=== PATIENT | male | born 1930 | race Caucasian/White ===

== ENCOUNTER 2017-10-16 07:58 | Inpatient (IN) ==
[2017-10-16] MEDS ORDERED: Thrombin Topical 20,000 UNIT Spray Kit TOPICAL ONE (08:19)
[2017-10-16] MEDS ORDERED: Bupivacaine PF 0.5% Inj 30 ML Vial ONE (08:19)
[2017-10-16] MEDS ORDERED: Heparin/NS PF Inj 500 ML ONE (08:19)
[2017-10-16] MEDS ORDERED: Heparin 10,000 UNITS/10 ML Vial (for IV use) ONE (08:19)
[2017-10-16] MEDS ORDERED: Protamine Sulfate Inj 50 MG/5 ML Vial ONE (08:19)
[2017-10-16] MEDS ORDERED: ceFAZolin 2 GM Premix Inj 2 GM/50 ML PIGGYBACK IV.SIG ONE (08:20)
[2017-10-16] MEDS ORDERED: Chlorhexidine Gluconate 2% 1 Pack (2 Cloths) TOPICAL SCH (09:30)
[2017-10-16] MEDS ORDERED: Metoprolol Tartrate 25 MG Tablet PO SCH (09:30)
[2017-10-16] MEDS ORDERED: Sodium Chlor 0.9% Inj 500 ML IV.SIG SCH (10:00)
--- NOTE | 2017-10-16 10:05 | P.HPVS ---
History of Present Illness Chief Complaint: R LE tissue loss, PAD History of Present Illness: 87 yo male with R 1st metatarsal tissue loss, nonhealing. Nonpalpable pulse and CTA shows inflow and outflow disease. - Inpatient Certification If this patient has been admitted as an Inpatient: I certify that the inpatient services were ordered in accordance with Medicare regulations governing the order. This includes certification that hospital inpatient services are reasonable and necessary and in the case of services not specified as inpatient-only under 42 CFR 419.22(n), that they are appropriately provided as inpatient services in accordance to with the 2-midnight benchmark under 43 CFR 412.3(e) Estimated Total Length of Stay (Days): 5 Plans for Post Hospital Care: SNF Review of Systems Constitutional: Reports fatigue, Denies chills Cardiovascular: Denies chest pain Respiratory: Reports cough Musculoskeletal: Reports abnormal walking PMFSH - History History Provided By: Patient, Family Member - Medical History Medical History: Medical History (Last Reviewed 10/16/17 @ 10:02 by Palmer Morales MD) Arthritis COPD (chronic obstructive pulmonary disease) Hx MRSA infection Open wound PVD (peripheral vascular disease) - Surgical History Surgical History: Surgical History (Last Reviewed 10/16/17 @ 10:02 by Palmer Morales MD) History of AAA (abdominal aortic aneurysm) repair Hx of aorto-femoral bypass - Tobacco History Second Hand Smoke Exposure: No Tobacco Use In Past 30 Days: Yes Smoking Status: Heavy tobacco smoker Tobacco Type: Cigarettes - Alcohol History How Often Do You Have a Drink Containing Alcohol: Never - Substance Use History Substance History: No History of Abuse - Travel History Recent Travel in the [place] Within the Last 8 Weeks: No Recent Travel Out of the Country Within the Last 8 Weeks: No Medications and Allergies Active Medications: Active Medications Chlorhexidine Gluconate (Chlorhexidine 2% Cloth) 3 pack TOPICAL ORGAN PIPE FINISHER ZEESHAN Stop: 10/19/17 09:28 Lactated Ringer's (Lr 1000 Ml Inj) 1,000 mls @ 30 mls/hr IV.SIG .Q24H ZEESHAN Stop: 10/19/17 09:28 Sodium Chloride (Ns Inj) 500 mls @ 30 mls/hr IV.SIG .Q10H ZEESHAN Stop: 10/19/17 09:28 Metoprolol Tartrate (Lopressor) 25 mg PO ORGAN PIPE FINISHER ZEESHAN Stop: 08/03/18 09:28 Povidone Iodine (Betadine 5% Antisepsis Kit) 1 applicatio EACH NARE ORGAN PIPE FINISHER ZEESHAN Stop: 10/19/17 09:28 Allergies Allergy/AdvReac Type Severity Reaction Status Date / Time bupropion [From Wellbutrin] AdvReac Dizziness Verified 10/16/17 08:54 Home Medications Medication Instructions Recorded Confirmed Type amlodipine 1 tab PO DAILY 10/09/17 10/16/17 History aspirin [Aspir-Low] 81 mg PO DAILY 10/09/17 10/16/17 History budesonide-formoterol [Symbicort] 2 puff INHALATION BID 10/09/17 10/16/17 History calcium carbonate-vit D3-min 2 tab PO DAILY 10/09/17 10/16/17 History [Calcium 600 + Minerals] cholecalciferol (vitamin D3) 1,000 unit PO DAILY 10/09/17 10/16/17 History docusate sodium [Colace] 200 mg PO DAILY 10/09/17 10/16/17 History omega 4-stq-wok-fish oil [Fish Oil] 1,200 mg PO DAILY 10/09/17 10/16/17 History simvastatin 10 mg PO QPM 10/09/17 10/16/17 History tramadol 50 mg PO Q6H PRN 10/09/17 10/16/17 History vitamin B complex 1 cap PO DAILY 10/09/17 10/16/17 History Physical Exam Vital Signs / I&O: Vital Signs 10/16/17 08:30 10/16/17 09:55 Temperature 97.6 F Pulse Rate 48 L 44 L Respiratory Rate 16 18 Blood Pressure 142/71 H Intake & Output 10/15/17 10/16/17 10/16/17 18:59 06:59 18:59 Weight 64.7 kg Other: Weight On Admission 64.7 kg Neuro: slightly confused, alert, FINNEGAN HEENT: NC/AT; anicteric Neck: no JVD Heart: irreg rate (occ irreg beat), no M Lungs: clear B on breathing treatment Vascular: palpable R femoral pulse but no popliteal and no pedal pulse Laboratory Results - last 24 hr 10/16/17 08:45 Blood Type O Positive Blood Type Recheck Required Antibody Screen Negative CTA (RUBIO) reviewed Shirleyi VTE Risk Assessment Caprini VTE Risk Assessment: No/Low Risk (score <= 1) (intraoperative heparin) Robin Risk Assessment Model: Point Value = 1 Point Value = 2 Point Value = 3 Point Value = 5 Age 41-60 Minor surgery BMI > 25 kg/m2 Swollen legs Varicose veins or History of unexplained or recurrent spontaneous Oral contraceptives or hormone replacement Sepsis (< 1 month) Serious lung disease, including pneumonia (< 1 month) Abnormal pulmonary function Acute myocardial infarction Congestive heart failure (< 1 month) History of inflammatory bowel disease Medical patient at bed rest Age 61-74 Arthroscopic surgery Major open surgery (> 45 min) Laparoscopic surgery (> 45 min) Malignancy Confined to bed (> 72 hours) Immobilizing plaster cast Central venous access Age >= 75 History of VTE Family history of VTE Factor V Leiden Prothrombin [id number] Lupus anticoagulant Anticardiolipin antibodies Elevated serum homocysteine Heparin-induced thrombocytopenia Other congenital or acquired thrombophilia Stroke (< 1 month) Elective arthroplasty Hip, pelvis, or leg fracture Acute spinal cord injury (< 1 month) Prophylaxis Regimen: Total Risk Factor Score Risk Level Prophylaxis Regimen 0-1 Low Early ambulation 2 Moderate Order ONE of the following: *Sequential Compression Device (SCD) *Heparin 5000 units SQ BID 3-4 Higher Order ONE of the following medications: *Heparin 5000 units SQ TID *Enoxaparin/Lovenox 40 mg SQ daily (WT < 150 kg, CrCl > 30 mL/min) *Enoxaparin/Lovenox 30 mg SQ daily (WT < 150 kg, CrCl > 10-29 mL/min) *Enoxaparin/Lovenox 30 mg SQ BID (WT < 150 kg, CrCl > 30 mL/min) AND/OR *Sequential Compression Device (SCD) 5 or more Highest Order ONE of the following medications: *Heparin 5000 units SQ TID (Preferred with Epidurals) *Enoxaparin/Lovenox 40 mg SQ daily (WT < 150 kg, CrCl > 30 mL/min) *Enoxaparin/Lovenox 30 mg SQ daily (WT < 150 kg, CrCl > 10-29 mL/min) *Enoxaparin/Lovenox 30 mg SQ BID (WT < 150 kg, CrCl > 30 mL/min) AND *Sequential Compression Device (SCD) Assessment and Plan - Assessment (1) PAD (peripheral artery disease) Code(s): I73.9 - Peripheral vascular disease, unspecified Status: Acute - Plan R groin reconstruction and distal bypass discussed with patient and procedure and anticipated course. Agree to proceed To OR [phone]
[2017-10-16] MEDS ORDERED: Phenylephrine/NS 1000 MCG/10ML Syringe IV.PUSH ONE (12:00)
[2017-10-16] MEDS ORDERED: Glycopyrrolate Inj 1 MG/5 ML Syringe IV.PUSH ONE (12:00)
[2017-10-16] MEDS ORDERED: Sodium Chlor 0.9% Inj 500 ML IV.SIG ONE (12:00)
[2017-10-16] MEDS ORDERED: Neostigmine Inj 5 MG/5 ML Syringe IV.PUSH ONE (12:00)
[2017-10-16] MEDS ORDERED: Lidocaine PF 1% Inj 5 ML Syringe INFILTRATN ONE (12:00)
[2017-10-16] MEDS ORDERED: Bisacodyl 10 MG Supp RECTAL PRN (13:39)
--- NOTE | 2017-10-16 13:39 | P.OP ---
Date of procedure: 10/16/17 Procedure: 1. R ilioprofunda bypass with 8mm Dacron 2. R fem-BK pop bypass with cryo Implants: 1. 8mm Dacron 2. Cryo vein Anesthesia: GETA Surgeon: Palmer Morales MD Media Relations Intern: Janina Cedeño Estimated blood loss (mL): 150 IV fluids (mL): 2,300 Urine output (mL): 300 Operation and Findings: 1. 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 ilioprofunda to profunda trifurcation 3. strong pedal signals at end of case
[2017-10-16] MEDS ORDERED: fentaNYL Citrate Inj 100 MCG/2 ML Ampul ONE (14:12)
--- NOTE | 2017-10-16 14:44 | MP ---
cc: Palmer Morales MD DATE OF OPERATION: 10/16/2017 PREOPERATIVE DIAGNOSIS: Right lower extremity tissue loss, peripheral vascular disease. POSTOPERATIVE DIAGNOSIS: Right lower extremity tissue loss, peripheral vascular disease. PROCEDURE PERFORMED: 1. Right iliofemoral bypass with 8 mm Dacron. 2. Right femoral to below knee popliteal bypass with cryopreserved vein. ATTENDING SURGEON: Palmer Morales MD TUNE UP MECHANIC SURGEON: Janina Vale. ANESTHESIA: General. INDICATIONS: Mr. Merritt is an 87-year-old gentleman with right lower extremity tissue loss, nonpalpable pedal pulses. He has a previous femoral repair and a femoral-femoral bypass that was subsequently excised for infection. He has on CT scan both inflow and outflow disease and is taken to the operating room for definitive treatment. DESCRIPTION OF PROCEDURE: Informed consent was obtained from the patient. He was taken to the operating room and placed supine on the operating table. An appropriate timeout was taken to ensure the patient's identity, operative site and planned procedure. The administration of 2 grams of Ancef was initiated prior to skin incision and will be discontinued after a single preoperative dose. Everyone in the room agreed with the timeout and we proceeded. He was prepped from his nipples to his toes. A vertical incision was made in the patient's right groin and carried down through subcutaneous tissue with electrocautery. Dense scar tissue was encountered. The external iliac artery was identified and encircled with a vessel loop. The vessel was then similarly encircled with a 2-0 silk and used as a Sanchez tie. We dissected down the common femoral artery, which was slightly aneurysmal and the SFA which was noted to be occluded. We dissected down the profunda, down to its trifurcation and all 3 trifurcating branches were all separately dissected free and encircled with vessel loops. A separate incision was made in the patient's proximal calf, carried down through subcutaneous tissue with electrocautery. The below-knee popliteal artery was identified and dissected free for several centimeters and then a tunnel was created between these 2 incisions. The patient was systemically heparinized. Throughout the remainder of the case, the ACT was kept greater than 250. Proximal control of the external iliac artery was obtained with a profunda clamp and the 3 profunda branches were controlled with profunda clamps. The entire common femoral artery was excised and the proximal SFA was excised. It was noted to be occluded and the distal aspect was oversewn with 4-0 Prolene suture. The external iliac artery was endarterectomized and the 8 mm Dacron was brought up on the field, spatulated and sewn end-to-end to the external iliac artery with running 5-0 Prolene suture. At the completion, it was flushed and noted to be hemostatic with a single repair suture. The graft was cut to appropriate length, spatulated and sewn end-to-end to the confluence of all 3 profunda branches using running 6-0 Prolene suture. At the completion, it was flushed and noted to be hemostatic with repair suture of 6-0 Prolene. There was a Doppler signal in all 3 profunda branches. Proximal and distal control of the graft was obtained with profunda clamps and a longitudinal graftotomy was made with an 11 blade, extended with [place] scissors. The cryopreserved vein was brought up on the field; it had been prepared in the standard fashion. It was spatulated and sewn end-to-side to the graft with running 5-0 Prolene suture. At the completion, it was flushed and noted to be hemostatic. The distal aspect of the vein was clamped. The vein was distended, noted to be hemostatic and marked for orientation. It was passed through the tunnel, taking caution not to twist it. Proximal and distal control of below-knee popliteal artery was obtained with profunda clamps and a longitudinal arteriotomy was made with an 11 blade, extended with Jose F scissors. The graft was cut to the appropriate length, spatulated and sewn end-to-side to the below-knee popliteal artery with running 6-0 Prolene suture. At the completion, it was flushed and noted to be hemostatic. There was a great signal in the foot and all the anastomoses were hemostatic. The heparin was reversed with protamine. The wounds were irrigated and made hemostatic. Amniofil was applied to the groin wound, given that this was the fourth time re-do groin incision and both wounds were closed with 2-0 Polysorb, 3-0 Polysorb and 4-0 Monocryl. The sponge and needle counts were correct at the end of the case. I was present and scrubbed for the entire procedure. MD SHARRON Neville , 02:20 PM , 02:30 PM
[2017-10-16] MEDS: Senna/Docusate Sodium 8.6/50 MG Tablet PO SCH (21:27)
[2017-10-16] MEDS: Famotidine 20 MG Tablet PO SCH (21:27)
[2017-10-16] MEDS: Budesonide-Formoterol 80/4.5 MCG 6.9 GM Inhaler INH SCH (22:22)
[2017-10-17 04:54] LABS: Hematocrit 37.5 % (39.0-51.0); Hemoglobin 12.2 gm/dL (13.0-17.0); Mean Corpuscular HGB Conc 32.5 % (32.0-36.0); Mean Corpuscular Hemoglobin 30.3 pg (27.0-34.0); Mean Corpuscular Volume 93.1 fL (80.0-100.0); Mean Platelet Volume 7.4 fL (7.0-11.0); Platelet Count 191 th/mm3 (150-450); Red Blood Count 4.02 mil/mm3 (4.50-5.90); Red Cell Distribution Width 15.2 % (11.6-17.2); White Blood Count 12.7 th/mm3 (4.0-11.0)
[2017-10-17 05:12] LABS: Calcium 8.6 mg/dL (8.5-10.1); Carbon Dioxide 31.2 meq/L (21.0-32.0); Potassium 5.2 meq/L (3.5-5.1)
--- NOTE | 2017-10-17 07:14 | P.PNVS ---
Subjective Post Op Day #: 1 Procedure: R groin reconstruction, fem-BK pop Subjective/Hospital Course: pt appears to be doing well this morning. pain controlled minimal confusion Objective Vital Signs / I&O: Vital Signs 10/16/17 08:30 10/16/17 09:55 10/16/17 13:58 Temperature 97.6 F 96.5 F L Pulse Rate 48 L 44 L 50 L Respiratory Rate 16 18 17 Blood Pressure 142/71 H 109/51 L Pulse Oximetry 100 10/16/17 14:15 10/16/17 14:30 10/16/17 14:45 Temperature Pulse Rate 44 L 45 L 48 L Respiratory Rate 21 20 20 Blood Pressure 172/62 H 176/70 H 169/72 H Pulse Oximetry 100 100 100 10/16/17 15:00 10/16/17 15:15 10/16/17 15:30 Temperature 97.5 F L Pulse Rate 47 L 47 L 49 L Respiratory Rate 17 18 17 Blood Pressure 170/51 H 166/48 H 170/74 H Pulse Oximetry 100 96 94 L 10/16/17 15:46 10/16/17 16:09 10/16/17 16:10 Temperature 97.3 F L 97.3 F L Pulse Rate 47 L 49 L 49 L Respiratory Rate 16 16 Blood Pressure 104/63 104/63 Pulse Oximetry 94 L 94 L 10/16/17 17:08 10/16/17 18:00 10/16/17 19:00 Temperature 98.2 F Pulse Rate 47 L 58 L 55 L Respiratory Rate 20 Blood Pressure 135/60 Pulse Oximetry 91 L 10/16/17 23:00 10/17/17 00:00 10/17/17 01:05 Temperature 98.1 F Pulse Rate 70 74 73 Respiratory Rate 18 16 Blood Pressure 110/53 L Pulse Oximetry 93 L 10/17/17 02:00 10/17/17 03:00 10/17/17 04:00 Temperature 99.3 F Pulse Rate 56 L 63 60 Respiratory Rate 16 16 Blood Pressure 114/59 L Pulse Oximetry 93 L 10/17/17 05:13 10/17/17 06:00 Temperature Pulse Rate 74 64 Respiratory Rate Blood Pressure Pulse Oximetry Intake & Output 10/16/17 10/17/17 10/17/17 18:59 06:59 18:59 Intake Total 2830 / 2830 480 / 480 Output Total 750 / 750 350 / 350 Balance 2079 / 0 130 / 130 Weight 64.7 kg 66 kg Intake: IV 1050 / 1050 Heparin/NS PF Inj 500 ML @ 0 0 / 0 mls/hr .ROUTE .STK-MED ONE Rx#: [id number] LR 1000 mL Inj 1,000 ML @ 30 1000 / 1000 mls/hr IV.SIG .Q24H ZEESHAN Rx#: [id number] Ancef 2 GM Premix Inj 2 gm In 50 / 50 50 ml @ 0 mls/hr IV.SIG .STK- MED ONE Rx#:[id number] Oral 480 / 480 480 / 480 Anesthesia Amount 1300 / 1300 Output: Urine 350 / 350 Estimated Blood Loss 150 / 150 Urine Amount (Catheter) 600 / 600 Indwelling Temp Sensing 600 / 600 Catheter Other: Mode Setting Right Groin Continuous Continuous Date of Last Bowel Movement 10/15/17 10/15/17 # Bowel Movements 0 Weight On Admission 64.7 kg Exam: Resting comfortably R groin Prevena in place R BK pop incision c/d/i palpable PT and DP Laboratory Results - last 24 hr 10/16/17 10/17/17 10/17/17 08:45 04:37 04:37 WBC 12.7 H RBC 4.02 L Hgb 12.2 L Hct 37.5 L MCV 93.1 MCH 30.3 MCHC 32.5 RDW 15.2 Plt Count 191 MPV 7.4 Sodium 141 Potassium 5.2 H Chloride 105 Carbon Dioxide 31.2 Anion Gap 5 BUN 22 H Creatinine 1.03 Estimated GFR 68 L Random Glucose 97 Calcium 8.6 Blood Type O Positive Blood Type Recheck Required Antibody Screen Negative Assessment and Plan - Assessment (1) PAD (peripheral artery disease) Code(s): I73.9 - Peripheral vascular disease, unspecified Status: Acute - Plan POD#1 R groin reconstruction and distal bypass; Bypass patent, palpable pulse, pain controlled 1. D/C Tinajero 2. Normalize 3. OOB / PT Discharge Plannin-3 days to rehab; OT/PT/case management all consulted [phone]
[2017-10-17] MEDS ORDERED: Non-Formulary Drug (Omega 3-Dha-Epa-Fish Oil [Fish Oil] 1,200 MG) PO SCH (09:00)
[2017-10-17] MEDS: amLODIPine 5 MG Tablet PO SCH (09:10)
[2017-10-17] MEDS: Calcium/Vitamin D 250/125 MG Tablet PO SCH (09:10)
[2017-10-17] MEDS: Senna/Docusate Sodium 8.6/50 MG Tablet PO SCH ×2 (09:10→20:37)
[2017-10-17] MEDS: Budesonide-Formoterol 80/4.5 MCG 6.9 GM Inhaler INH SCH ×2 (09:11→20:37)
[2017-10-17] MEDS: Famotidine 20 MG Tablet PO SCH ×2 (09:11→20:37)
[2017-10-17] MEDS: Enoxaparin Inj 40 MG/0.4 ML Syringe SQ SCH (15:53)
--- NOTE | 2017-10-18 07:34 | P.PNVS ---
Subjective Post Op Day #: 2 Procedure: R groin reconstruction, fem-BK pop Subjective/Hospital Course: mild confusion, anxious to get OOB and moving Req I/O cath x 2 yesterday worked with PT Objective Vital Signs / I&O: Vital Signs 10/17/17 08:00 10/17/17 09:00 10/17/17 10:00 Temperature Pulse Rate 60 54 L 52 L Respiratory Rate Blood Pressure Pulse Oximetry 10/17/17 11:00 10/17/17 12:00 10/17/17 14:00 Temperature 98.1 F Pulse Rate 54 L 52 L 55 L Respiratory Rate 15 Blood Pressure 113/56 L Pulse Oximetry 98 10/17/17 15:00 10/17/17 16:00 10/17/17 17:00 Temperature 98 F Pulse Rate 59 L 64 68 Respiratory Rate 15 Blood Pressure 117/59 L Pulse Oximetry 95 10/17/17 18:00 10/17/17 20:00 10/17/17 21:00 Temperature 98.5 F Pulse Rate 62 60 62 Respiratory Rate 20 Blood Pressure 112/56 L Pulse Oximetry 94 L 10/17/17 22:00 10/17/17 23:00 10/18/17 00:00 Temperature 99.6 F Pulse Rate 58 L 58 L 53 L Respiratory Rate 20 Blood Pressure 98/56 L Pulse Oximetry 94 L 10/18/17 01:00 10/18/17 02:00 10/18/17 03:00 Temperature Pulse Rate 54 L 54 L 58 L Respiratory Rate Blood Pressure Pulse Oximetry 10/18/17 04:00 10/18/17 05:00 10/18/17 06:00 Temperature 98.3 F Pulse Rate 58 L 56 L 58 L Respiratory Rate 20 Blood Pressure 128/58 L Pulse Oximetry 96 Intake & Output 10/17/17 10/18/17 10/18/17 18:59 06:59 18:59 Output Total 150 / 150 420 / 420 Balance -150 / -150 -420 / -420 Weight 65 kg Output: Urine 150 / 150 Urine Amount (Catheter) 420 / 420 Straight 420 / 420 Other: Mode Setting Right Groin Continuous Continuous Date of Last Bowel Movement 10/15/17 10/15/17 Exam: resting comfortably, no distress R groin soft with Prevena in place palpable PT and DP calf incision ok Assessment and Plan - Assessment (1) PAD (peripheral artery disease) Code(s): I73.9 - Peripheral vascular disease, unspecified Status: Acute - Plan POD#2 R groin reconstruction and distal bypass; Bypass patent, palpable pulse, pain controlled 1. Follow-up UOP; july req Tinajero reinserted 2. continue PT 3. Limit narcotics given mild dementia Discharge Planning: Sun/Sat to rehab PT/OT/Case management consulted [phone]
[2017-10-18] MEDS: Calcium/Vitamin D 250/125 MG Tablet PO SCH (09:37)
[2017-10-18] MEDS: Famotidine 20 MG Tablet PO SCH ×2 (09:38→20:59)
[2017-10-18] MEDS: amLODIPine 5 MG Tablet PO SCH (09:38)
[2017-10-18] MEDS: Senna/Docusate Sodium 8.6/50 MG Tablet PO SCH ×2 (09:38→20:59)
[2017-10-18] MEDS: Budesonide-Formoterol 80/4.5 MCG 6.9 GM Inhaler INH SCH ×2 (09:43→21:00)
[2017-10-18] MEDS: Enoxaparin Inj 40 MG/0.4 ML Syringe SQ SCH (13:36)
--- NOTE | 2017-10-19 07:20 | P.PNVS ---
Subjective Post Op Day #: 3 Procedure: R groin reconstruction, fem-BK pop Subjective/Hospital Course: looks great no pain working with PT appetite ok Objective Vital Signs / I&O: Vital Signs 10/18/17 08:00 10/18/17 09:00 10/18/17 10:00 Temperature Pulse Rate 61 60 60 Respiratory Rate Blood Pressure Pulse Oximetry 10/18/17 11:00 10/18/17 12:00 10/18/17 13:00 Temperature 98.1 F Pulse Rate 58 L 61 62 Respiratory Rate 16 Blood Pressure 109/64 Pulse Oximetry 10/18/17 14:00 10/18/17 15:00 10/18/17 16:00 Temperature 98.9 F Pulse Rate 62 64 64 Respiratory Rate 16 Blood Pressure 108/56 L Pulse Oximetry 10/18/17 17:51 10/18/17 20:00 10/18/17 21:00 Temperature 98.6 F Pulse Rate 82 66 60 Respiratory Rate 18 Blood Pressure 101/54 L Pulse Oximetry 94 L 10/18/17 22:00 10/18/17 23:00 10/19/17 00:00 Temperature 98.2 F Pulse Rate 60 66 60 Respiratory Rate 18 Blood Pressure 97/52 L Pulse Oximetry 95 10/19/17 01:00 10/19/17 02:00 10/19/17 03:00 Temperature Pulse Rate 62 62 56 L Respiratory Rate Blood Pressure Pulse Oximetry 10/19/17 04:00 10/19/17 05:00 10/19/17 06:00 Temperature 98 F Pulse Rate 63 56 L 56 L Respiratory Rate 18 Blood Pressure 114/56 L Pulse Oximetry 93 L Intake & Output 10/18/17 10/19/17 10/19/17 18:59 06:59 18:59 Intake Total 1780 / 1780 Output Total 350 / 350 75 / 75 Balance 1430 / 1430 -75 / -75 Weight 64 kg Intake: Oral 480 / 480 Anesthesia Amount 1300 / 1300 Output: Urine 350 / 350 75 / 75 Other: Mode Setting Right Groin Continuous Continuous # Voids 1 Date of Last Bowel Movement 10/18/17 10/15/17 # Bowel Movements 2 Exam: resting comfortably R BK pop incision ok R groin Prevena in place palpable pedal pulses Assessment and Plan - Assessment (1) PAD (peripheral artery disease) Code(s): I73.9 - Peripheral vascular disease, unspecified Status: Acute - Plan POD#3 R groin reconstruction and distal bypass; Bypass patent, palpable pulse, pain controlled 1. continue PT, OOB 2. Normalize 3. D/C to rehab today; pt and agree with plan Discharge Planning: today to rehab [phone]
--- NOTE | 2017-10-19 08:06 | P.DS ---
Discharge Summary - Admission Date 10/16/17 07:58 - Admission Diagnosis (1) PAD (peripheral artery disease) - Discharge Date 10/19/17 - Discharge Diagnosis (1) PAD (peripheral artery disease) Status: Acute - Summary Brief History from admission: 87 yo male with R 1st metatarsal tissue loss, nonhealing. Nonpalpable pulse and CTA shows inflow and outflow disease. Procedure: R groin reconstruction, fem-BK pop Significant Findings: Palpable R DP/PT (2+) Wound to right foot with significant improvement in appearance Provena wound vac to Right groin in place w/o hematoma or swelling LE warm w/ motor intact Hospital Course: 87 yo male with R 1st metatarsal tissue loss, nonhealing. Nonpalpable pulse and CTA shows inflow and outflow disease. Pt S/P Right lower extremity revascularization Pt did well post operatively/wound appearance has improved Pt clear for d/c to an out pt rehab for continued therapy and optimal healing Pt to RTC in 4days for vac removal in our out pt clinic Discussed d/c instructions care, management and plan w/ pt and Questions answered E-Forcse reviewed- No recent activity - Discharge Instructions DIET Your may resume a heart healthy diet ACTIVITY Activity as tolerated You may shower then pat dry your incision NO tub baths or swimming until your incision is fully healed WOUND CARE You are scheduled on Sun10/23/17 for a wound vac removal in our out pt clinic at 11:45 Leave your wound open to air Do not apply any creams or ointments to your incision as it may loosen the surgical glue Do not apply any perfumes near your incision site Call the office if you are experiencing any increased redness, drainage or swelling MEDICATIONS You may resume your daily home medication regimen Your were prescribed a narcotic pain medication this may cause constipation- take with an over the counter stool softener Your were prescribed a narcotic pain medication this may cause drowsiness- No driving while taking this medication Any questions or concerns: Call [facility] at [facility] [phone] Discharge Plan - Discharge Disposition Patient Disposition: Discharge to SNF - Discharge Condition Condition: Good - Discharge Order Discharge Orders: Discharge Order (Routine); Ordered 10/19/17 Ordered By: Marysol Leblanc - Physicians Team Primary Care Provider: Brian Perez Attending Provider: Palmer Morales Other Providers: Months Of Me,Insurance ; [facility],[place] - Rxs /Orders / Referrals /Forms Prescriptions: New oxycodone 5 mg Tablet 5 mg PO Q4H PRN (Reason: pain) Qty: 20 RF: 0 Continue amlodipine 2.5 mg Tablet 1 tab PO DAILY aspirin [Aspir-Low] 81 mg Tablet,Delayed Release (Dr/Ec) 81 mg PO DAILY budesonide-formoterol [Symbicort] 80-4.5 mcg/actuation Hfa Aerosol Inhaler 2 puff INHALATION BID omega 4-som-atz-fish oil [Fish Oil] 1,000 mg (120 mg-180 mg) Capsule 1,200 mg PO DAILY simvastatin 10 mg Tablet 10 mg PO QPM tramadol 50 mg Tablet 50 mg PO Q6H PRN (Reason: Pain) No Action calcium carbonate-vit D3-min [Calcium 600 + Minerals] 600 mg calcium- 200 unit Tablet 2 tab PO DAILY cholecalciferol (vitamin D3) 1,000 unit Capsule 1,000 unit PO DAILY docusate sodium [Colace] 100 mg Capsule 200 mg PO DAILY vitamin B complex Capsule 1 cap PO DAILY Referrals: Brian Perez MD [Primary Care Provider] - See Instructions Palmer Morales MD [Physician] - See Instructions (Follow up in our out pt clinic on Sun10/23/17 at 11:45 for wound vac removal ) - Discharge Instructions Patient Printed Instructions: Heart Healthy Diet (DC), Peripheral Vascular Disease (DC) Additional Instructions: DIET Your may resume a heart healthy diet ACTIVITY Activity as tolerated You may shower then pat dry your incision NO tub baths or swimming until your incision is fully healed WOUND CARE You are scheduled on Sun10/23/17 for a wound vac removal in our out pt clinic at 11:45 Leave your wound open to air Do not apply any creams or ointments to your incision as it may loosen the surgical glue Do not apply any perfumes near your incision site Call the office if you are experiencing any increased redness, drainage or swelling MEDICATIONS You may resume your daily home medication regimen Your were prescribed a narcotic pain medication this may cause constipation- take with an over the counter stool softener Your were prescribed a narcotic pain medication this may cause drowsiness- No driving while taking this medication
[2017-10-19] MEDS: Senna/Docusate Sodium 8.6/50 MG Tablet PO SCH (08:49)
[2017-10-19] MEDS: Calcium/Vitamin D 250/125 MG Tablet PO SCH (08:49)
[2017-10-19] MEDS: Famotidine 20 MG Tablet PO SCH (08:49)
[2017-10-19] MEDS: amLODIPine 5 MG Tablet PO SCH (08:49)
[2017-10-19] MEDS: Budesonide-Formoterol 80/4.5 MCG 6.9 GM Inhaler INH SCH (08:50)
== END 2017-10-19 12:59 ==
LOC: HSDI 07:58 → HCPC 16:48
PROVIDERS: ADMIT Surgery; ATTEND Surgery